=== PATIENT | male | born 1975 | race Caucasian/White ===

== ENCOUNTER 2025-02-20 13:22 | Emergency (ER) | payer OTHER ==
[2025-02-20] MEDS ORDERED: Lidocaine 1% w/Epinephrine 1:100K 20 ML VIAL ONE (13:46)
[2025-02-20] MEDS ORDERED: Boostrix 0.5 ML (Tdap) VIAL (>/=7 yrs of age) ONE (13:47)
[2025-02-20] MEDS ORDERED: Bacitracin 1 PK ONE (14:49)
== END 2025-02-20 15:04 | disposition home or self-care (01) ==
LOC: NAV ERS 13:22
DX: S01.81XA Laceration without foreign body of other part of head, initial encounter (principal); Z23 Encounter for immunization; W22.8XXA Striking against or struck by other objects, initial encounter; Y99.0 Civilian activity done for income or pay
CPT/HCPCS: 12011; 90471; 90715